=== PATIENT | male | born 1955 | race African-American/Black ===

== ENCOUNTER 2016-03-18 13:31 | Emergency (ER) | payer SELFPAY ==
[~2016-03-18] VITALS: Ht 193 cm; Wt 75.9 kg
[~2016-03-18 13:31] MED LIST: IBUP800T23 PO
[2016-03-18 13:33] VITALS: BP 138/76; PULSE 97; RESP 14; TEMP 98.4; O2SAT 96
--- NOTE | 2016-03-18 14:05 | PD ---
HPI . left arm pain and left leg pain x 4 weeks Chief Complaint: Injury Time Seen by Provider: 14:04 Travel History International Travel<30 days: No Contact w/Intl Traveler<30days: No Traveled to known affect area: No History of Present Illness HPI 60-year-old male with no significant past medical history other than tobacco abuse and alcohol abuse presents to the emergency room complaints of left shoulder and arm pain greater than 4 weeks, as well as left lower extremity pain. Patient states he has had some upper extremity pain for several weeks and has difficulty using his arm. He reports trouble putting on his shirt or lifting any objects. He does lift heavy objects at work and tells me that he needs to be able to work and needs this issue rectified immediately. In regards to his leg pain, it is more chronic in nature and has been long- standing. He denies any recent injury or trauma. He is able to walk without any difficulty or assistance. He is accompanied by his . He denies any chest pain, shortness of breath, abdominal pain, back pain, bowel or bladder dysfunction or saddle anesthesia. He denies any numbness, tingling, slurred speech, or gait difficulties. History Social History Alcohol Use: Yes (1/2 [employer]) Tobacco Use: Yes (1 PACK PER WEEK) Allergies-Medications (Allergen,Severity, Reaction): Coded Allergies: No Known Allergies (Verified , 03/18/16) Reported Meds & Prescriptions Reported Meds & Active Scripts Active Review of Systems General / Constitutional: No: Fever Eyes: No: Visual changes HENT: No: Headaches Cardiovascular: No: Chest Pain or Discomfort Respiratory: No: Shortness of Breath Gastrointestinal: No: Abdominal Pain Genitourinary: No: Dysuria Musculoskeletal: Positive: Pain (left shoulder and left leg pain) Skin: No Rash Neurologic: No: Weakness Psychiatric: No: Depression Endocrine: No: Polydipsia Hematologic/Lymphatic: No: Easy Bruising Physical Exam Narrative GENERAL: AAO x 3, no acute distres. Comfortable on exam table. Thin appearing. SKIN: Warm and dry. No visible rashes or bruising. HEAD: Normocephalic and atraumatic. EYES: No scleral icterus. No injection or drainage. EOM intact, PERRLA ENT: No nasal drainage noted. Mucous membranes pink. Airway patent. NECK: Supple, trachea midline. No JVD. CARDIOVASCULAR: Regular rate and rhythm without murmurs, gallops, or rubs. RESPIRATORY: Breath sounds equal bilaterally. No accessory muscle use. No rhonchi or rales. GASTROINTESTINAL: Abdomen soft, non-tender, nondistended. EXTREMITIES: No cyanosis or edema. Difficulty with active ROM of right shoulder , Passive ROM with some pain. He has positive empty can test. BACK: Nontender without obvious deformity. No CVA tenderness. NEURO: [employer] strength slightly diminished on left hand. Leg strength is normal b/ l. PSYCH: AAO x 3, normal affect. Data Data Last Documented VS Vital Signs Date Time Temp Pulse Resp B/P Pulse Ox O2 Delivery O2 Flow Rate FiO2 03/18/16 13:33 98.4 97 14 138/76 96 Room Air MDM Medical Screen Exam Complete: Yes Emergency Medical Condition: No Differential Diagnosis supraspinatus nerve impingement, rotator cuff injury, shoulder OA OA, muscle spasm Narrative Course 60-year-old male with no significant past medical history other than tobacco abuse and alcohol abuse presents to the emergency room complaints of left shoulder and arm pain greater than 4 weeks, as well as left lower extremity pain. Patient states he has had some upper extremity pain for several weeks and has difficulty using his arm. He reports trouble putting on his shirt or lifting any objects. He does lift heavy objects at work and tells me that he needs to be able to work and needs this issue rectified immediately. In regards to his leg pain, it is more chronic in nature and has been long- standing. He denies any recent injury or trauma. He is able to walk without any difficulty or assistance. He is accompanied by his . He denies any chest pain, shortness of breath, abdominal pain, back pain, bowel or bladder dysfunction or saddle anesthesia. He denies any numbness, tingling, slurred speech, or gait difficulties. A medical screening exam was performed: At the time of evaluation the presenting medical condition was determined not to be of an emergent nature. The patient was given the option of receiving additional care, but declined. Patient was given options for additional community resources from which to obtain care. The Patient Has Been advised to seek medical attention for their presenting complaint. The patient has been advised to return to the ER at any time if an emergent condition develops. I advised patient that he will need to establish with a primary care provider to help navigate his care as he will need ortho follow up to get his shoulder issues fixed. Plan I advised patient that he will need to establish with a primary care provider to help navigate his care as he will need ortho follow up to get his shoulder issues fixed. Primary Impression: Encounter for medical screening examination Condition: Stable Jacinta Tovar Mar 18, 2016 14:05
== END 2016-03-18 14:39 | disposition left against medical advice (07) ==
LOC: NEPB 13:31
DX: M25.512 Pain in left shoulder (principal); F17.210 Nicotine dependence, cigarettes, uncomplicated
CPT/HCPCS: 99281

== ENCOUNTER 2018-01-15 13:53 | Inpatient (IN) ==
--- NOTE | 2018-01-15 15:20 | ED ---
HPI General Chief complaint: Chest Pain Stated complaint: right numbness complaint Time Seen by Provider: 01/15/18 14:39 History of Present Illness HPI narrative: Patient is a 62-year-old male presents emergency department chiefly with right upper quadrant/right flank pain fairly constant for the past 2 weeks. Patient states it radiates up into his right chest wall and a little bit into his shoulder as well. He states no nausea but he has vomited several times. He also states he has been having significant runny diarrhea as well and has lost 9 pounds in the past 2 weeks. He is a cigarette smoker. No cough no congestion no fevers no blood in the stool no blood in the emesis. Symptoms moderate, location radiation and contacts as above per Related Data Home Medications Medication Instructions Recorded Confirmed chlordiazepoxide HCl 25 mg PO TID 01/15/18 01/15/18 omeprazole 20 mg PO DAILY 01/15/18 01/15/18 Allergies Allergy/AdvReac Type Severity Reaction Status Date / Time No Known Allergies Allergy Uncoded 03/18/16 13:44 Review of Systems ROS: all other systems reviewed are negative [facility] Medical History Medical History ETOH abuse (Acute) Social History Social History Substance History: No History of Abuse Smoking Status: Former smoker Tobacco Type: Cigarettes How Often Do You Have a Drink Containing Alcohol: 2 to 3 times a week Recent Travel in [facility] within the Last 8 Weeks: No Recent Out of Country Travel within the Last 8 Weeks: No Exam Narrative Exam Narrative: GENERAL: Well-developed well-nourished but thin and in no obvious distress SKIN: Focused skin assessment warm/dry. HEAD: Atraumatic. Normocephalic. EYES: Pupils equal and round. No scleral icterus. No injection or drainage. ENT: No nasal bleeding or discharge. Mucous membranes pink and moist. NECK: Trachea midline. No JVD. CARDIOVASCULAR: Regular rate and rhythm. No murmur appreciated. RESPIRATORY: No accessory muscle use. Clear to auscultation. Breath sounds equal bilaterally. GASTROINTESTINAL: Abdomen soft, minimally tender in the right upper quadrant without rebound percussive tenderness or guarding. nondistended. Hepatic and splenic margins not palpable. MUSCULOSKELETAL: No obvious deformities. No clubbing. No cyanosis. No edema. NEUROLOGICAL: Awake and alert. No obvious cranial nerve deficits. Motor grossly within normal limits. Normal speech. PSYCHIATRIC: Appropriate mood and affect; insight and judgment normal. Course Initial Documented Vital Signs Temperature 97.6 F 01/15/18 14:01 Pulse Rate 84 01/15/18 14:01 Respiratory Rate 16 01/15/18 14:01 Blood Pressure 132/63 01/15/18 14:01 Pulse Oximetry 97 01/15/18 14:01 Last Documented Vital Signs Temperature 98.0 F 01/15/18 15:11 Pulse Rate 50 L 01/15/18 18:51 Respiratory Rate 18 01/15/18 18:51 Blood Pressure 132/75 01/15/18 18:51 Pulse Oximetry 100 01/15/18 18:51 Medical Decision Making MDM Narrative Medical decision making narrative: patient roomed in the ER. Labs are reassuring. UA still pending at the time of admission. patient CT scan shows obstruction of the right renal pelvis. No obvious source seen. Patient is cigarrette smoker and has a reported history of weight loss and malignancy considered. D/W the patient recommended for admission for renal decompression and urology consult. He is agreeable. Only with minimal pain now but he is hungry. d/w dr canada Medical Screen Exam Complete: Yes Emergency Medical Condition: Yes Lab Data Result diagrams: 01/15/18 15:25 01/15/18 15:25 Lab Results 01/15/18 01/15/18 Range/Units 15:25 15:25 WBC 5.4 (4.0-11.0) th/mm3 RBC 3.71 L (4.50-5.90) mil/mm3 Hgb 12.6 L (13.0-17.0) gm/dL Hct 36.2 L (39.0-51.0) % MCV 97.7 (80.0-100.0) fL MCH 34.1 H (27.0-34.0) pg MCHC 34.9 (32.0-36.0) % RDW 14.5 (11.6-17.2) % Plt Count 212 (150-450) th/mm3 MPV 8.2 (7.0-11.0) fL Neut % (Auto) 64.9 (16.0-70.0) % Lymph % (Auto) 21.6 (9.0-44.0) % Nobles % (Auto) 12.4 H (0.0-8.0) % Eos % (Auto) 0.5 (0.0-4.0) % Baso % (Auto) 0.6 (0.0-2.0) % Neut # (Auto) 3.5 (1.8-7.7) th/mm3 Lymph # (Auto) 1.2 (1.0-4.8) th/mm3 Nobles # (Auto) 0.7 (0.0-0.9) th/mm3 Eos # (Auto) 0.0 (0.0-0.4) th/mm3 Baso # (Auto) 0.0 (0.0-0.2) th/mm3 WBC Differential . Differential Comment Auto diff final Sodium 139 (136-145) meq/L Potassium 4.0 (3.5-5.1) meq/L Chloride 106 (98-107) meq/L Carbon Dioxide 28.4 (21.0-32.0) meq/L Anion Gap 5 (5-15) meq/L BUN 11 (7-18) mg/dL Creatinine 0.98 (0.60-1.30) mg/dL Estimated GFR Greater than 89 (>89) mL/min Random Glucose 107 H (74-106) mg/dL Calcium 8.9 (8.5-10.1) mg/dL Total Bilirubin 0.4 (0.2-1.0) mg/dL AST 32 (15-37) U/L ALT 21 (12-78) U/L Alkaline Phosphatase 49 (45-117) U/L Total Protein 7.3 (6.4-8.2) g/dL Albumin 3.5 (3.4-5.0) g/dL Lipase 224 (73-393) U/L Imaging Data Radiologist's impression: Chest X-Ray 01/15/18 15:12 CONCLUSION: No acute abnormality is seen. Abdomen/Pelvis CT 01/15/18 16:05 CONCLUSION: 1. Severe dilatation of the right collecting system and right renal pelvis with abrupt transition at the UPJ level. This is likely from a UPJ obstruction. There does appear to be normal symmetric enhancement of the kidneys and excretion of the contrast into the collecting system. 2. Calcified pleural plaque at the anterior lateral right mid chest. Discharge Plan Discharge Disposition Patient Disposition: ED Admit(ED Internal Use Only) Discharge Condition Condition: Stable Discharge Order Discharge Orders: ED Use Only Admit Order (Routine); Ordered 01/15/18 Ordered By: Jarett Nelson Physicians Team ED Provider: Jarett Nelson Primary Care Provider: UNKNOWN, Attending Provider: Hector Canada Other Providers: Jose Land Discharge Interventions Interventions: Vital Signs Last Done: 01/15/18 14:05 Status ED Status: Admitted Patient
--- NOTE | 2018-01-15 15:33 | XR ---
EXAM DATE: 01/15/2018 3:28 PM EST AGE/SEX: 62 years / Male INDICATIONS: . Chest pain. CLINICAL DATA: This is the patient's initial encounter. Patient reports that signs and symptoms have been present for 3 weeks and indicates a pain score of 6/10. MEDICAL/SURGICAL HISTORY: None. None. [place] [facility] [place]. . FINDINGS: The heart size is normal. The lungs are grossly clear. No effusion is seen. There is calcification in the right mid lung thought related to pleural calcification. This was present previously. CONCLUSION: No acute abnormality is seen. Electronically signed by: Tylor Alfonso MD 01/15/2018 3:31 PM EST
[2018-01-15] MEDS ORDERED: Ketorolac Inj 30 MG/ML (IVP) Vial IV.PUSH ONE (15:51)
[2018-01-15 15:57] LABS: Baso % (Auto) 0.6 % (0.0-2.0); Eos % (Auto) 0.5 % (0.0-4.0); Hematocrit 36.2 % (39.0-51.0); Hemoglobin 12.6 gm/dL (13.0-17.0); Lymph # (Auto) 1.2 th/mm3 (1.0-4.8); Lymph % (Auto) 21.6 % (9.0-44.0); Mean Corpuscular HGB Conc 34.9 % (32.0-36.0); Mean Corpuscular Hemoglobin 34.1 pg (27.0-34.0); Mean Corpuscular Volume 97.7 fL (80.0-100.0); Mean Platelet Volume 8.2 fL (7.0-11.0); Mono # (Auto) 0.7 th/mm3 (0.0-0.9); Mono % (Auto) 12.4 % (0.0-8.0); Neut # (Auto) 3.5 th/mm3 (1.8-7.7); Neut % (Auto) 64.9 % (16.0-70.0); Platelet Count 212 th/mm3 (150-450); Red Blood Count 3.71 mil/mm3 (4.50-5.90); Red Cell Distribution Width 14.5 % (11.6-17.2); White Blood Count 5.4 th/mm3 (4.0-11.0)
[2018-01-15 16:12] LABS: Alanine Aminotransferase 21 U/L (12-78)
[2018-01-15 16:14] LABS: Alkaline Phosphatase 49 U/L (45-117); Total Protein 7.3 g/dL (6.4-8.2)
[2018-01-15 16:24] LABS: Albumin 3.5 g/dL (3.4-5.0); Anion Gap 5 meq/L (5-15); Aspartate Aminotransferase 32 U/L (15-37); Blood Urea Nitrogen 11 mg/dL (7-18); Calcium 8.9 mg/dL (8.5-10.1); Carbon Dioxide 28.4 meq/L (21.0-32.0); Chloride 106 meq/L (98-107); Glomerular Filtration Rate Greater Than 89 mL/min (>89); Glucose,Random 107 mg/dL (74-106); Lipase 224 U/L (73-393); Sodium 139 meq/L (136-145)
--- NOTE | 2018-01-15 18:40 | CT ---
EXAM DATE: 01/15/2018 6:30 PM EST AGE/SEX: 62 years / Male INDICATIONS: Right upper abdomen pain for three weeks. CLINICAL DATA: This is the patient's initial encounter. Patient reports that signs and symptoms have been present for 3 weeks and indicates a pain score of 7/10. MEDICAL/SURGICAL HISTORY: None. None. ORAL CONTRAST: No oral contrast ingested. RADIATION DOSE: 4.84 CTDI (mGy) COMPARISON: No prior exams available for comparison. TECHNIQUE: Multiple contiguous axial images were obtained through the abdomen and pelvis following b olus infusion of 86 ml Omnipaque 350 (iohexol) nonionic water-soluble contrast as a single exam dos e. No oral contrast ingested. Using automated exposure control and adjustment of the mA and/or kV ac cording to patient size, radiation dose was kept as low as reasonably achievable to obtain optimal di agnostic quality images. DICOM format image data is available electronically for review and comparis on. FINDINGS: Lower Lungs: The visualized lower lungs are clear. Calcified pleural plaque is seen along the anterio r lateral right mid chest. Liver: The liver has a homogeneous density without space-occupying lesion. There is no dilation of th e biliary tree. Spleen: Homogeneous density without enlargement. Pancreas: Unremarkable without mass or calcification. Kidneys: There is severe dilatation of the right renal collecting system and right renal pelvis. The right ureters not dilated. No stones are seen. The renal cortex appears to enhance symmetrically whe n compared to the contralateral side. There is excretion of contrast into the collecting systems bila terally. The left kidney appears normal. Adrenal Glands: Unremarkable. Aorta: The aorta and proximal iliac vessels are grossly unremarkable without aneurysmal dilation. Bowel/Mesentery: The bowel loops are grossly unremarkable. The cecum and sigmoid colon have a normal configuration. Abdominal Wall: Intact. Retroperitoneum: No evidence of adenopathy in the retrocrural, para-aortic, or deep pelvic regions. Bladder: Contours are smooth. Reproductive Organs: No abnormal masses or calcifications seen. Inguinal: The inguinal region is unremarkable without evidence of adenopathy. Bony Structures: Unremarkable. CONCLUSION: 1. Severe dilatation of the right collecting system and right renal pelvis with abrupt transition at the UPJ level. This is likely from a UPJ obstruction. There does appear to be normal symmetric enhan cement of the kidneys and excretion of the contrast into the collecting system. 2. Calcified pleural plaque at the anterior lateral right mid chest. Electronically signed by: Tylor Alfonso MD 01/15/2018 6:39 PM EST
[2018-01-15] MEDS ORDERED: Acetaminophen 325 MG Tablet PO PRN (19:39)
[2018-01-15] MEDS ORDERED: Bisacodyl 10 MG Supp RECTAL PRN (19:39)
[2018-01-15] MEDS ORDERED: LORazepam 1 MG Tablet PO PRN (19:47)
[2018-01-15] MEDS ORDERED: Haloperidol Inj 5 MG/ML Ampul IV.PUSH PRN (19:47)
[2018-01-15] MEDS: Sod Chloride 0.9% Inj 1,000 ML IV.CONT SCH (20:13)
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
[2018-01-16 05:06] LABS: Baso % (Auto) 0.7 % (0.0-2.0); Eos % (Auto) 1.2 % (0.0-4.0); Hematocrit 36.1 % (39.0-51.0); Hemoglobin 12.2 gm/dL (13.0-17.0); Lymph # (Auto) 1.3 th/mm3 (1.0-4.8); Lymph % (Auto) 33.8 % (9.0-44.0); Mean Corpuscular HGB Conc 33.9 % (32.0-36.0); Mean Corpuscular Hemoglobin 32.5 pg (27.0-34.0); Mean Corpuscular Volume 95.9 fL (80.0-100.0); Mean Platelet Volume 7.8 fL (7.0-11.0); Mono # (Auto) 0.5 th/mm3 (0.0-0.9); Mono % (Auto) 13.6 % (0.0-8.0); Neut % (Auto) 50.7 % (16.0-70.0); Platelet Count 205 th/mm3 (150-450); Red Blood Count 3.76 mil/mm3 (4.50-5.90); Red Cell Distribution Width 14.4 % (11.6-17.2); White Blood Count 3.9 th/mm3 (4.0-11.0)
[2018-01-16 05:18] LABS: INR 1.1 Ratio; Prothrombin Time 10.9 sec (9.8-11.6)
[2018-01-16 05:28] LABS: Albumin 3.1 g/dL (3.4-5.0); Anion Gap 7 meq/L (5-15); Aspartate Aminotransferase 25 U/L (15-37); Blood Urea Nitrogen 9 mg/dL (7-18); Calcium 8.3 mg/dL (8.5-10.1); Carbon Dioxide 26.6 meq/L (21.0-32.0); Chloride 106 meq/L (98-107); Glomerular Filtration Rate Greater Than 89 mL/min (>89); Glucose,Random 86 mg/dL (74-106); Potassium 3.6 meq/L (3.5-5.1); Sodium 140 meq/L (136-145)
[2018-01-16 05:29] LABS: Alanine Aminotransferase 18 U/L (12-78)
[2018-01-16 05:31] LABS: Alkaline Phosphatase 38 U/L (45-117); Total Protein 6.6 g/dL (6.4-8.2)
[2018-01-16] MEDS: Sod Chloride 0.9% Inj 1,000 ML IV.CONT SCH ×2 (05:31→14:49)
[2018-01-16 06:02] LABS: Bilirubin,Urine Negative (Negative); Clarity,Urine Clear (Clear); Color,Urine Yellow (Yellw/Straw); Glucose,Urine (UA) Negative (Negative); Leukocyte Esterase,Urine Negative (Negative); Mucus,Urine Many /lpf (Occasional); Nitrite,Urine Negative (Negative); Specific Gravity,Urine 1.058 (1.002-1.035); Squamous Epithelial Cell,Urine <1 /hpf (0-5)
[2018-01-16 06:03] LABS: Urobilinogen,Urine 0.2 mg/dL (Less than 2)
[2018-01-16] MEDS: Pantoprazole Sodium 20 MG DR Tablet PO SCH (08:05)
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
--- NOTE | 2018-01-16 09:09 | P.PN ---
Subjective Interval history: Follow up for urinary obstruction, hydronephrosis, flank pain. Patient reports continued diffuse right flank pain, unchanged compared to yesterday. Denies fevers or chills. He states he does have problems initiating urination, but denies dysuria. Denies any other medical complaints. Physical Exam Vital signs: Vital Signs 01/15/18 14:01 01/15/18 14:05 01/15/18 15:11 Temperature 97.6 F 98.0 F Pulse Rate 84 68 87 Respiratory Rate 16 18 18 Blood Pressure 132/63 124/78 137/62 Pulse Oximetry 97 98 98 01/15/18 18:51 01/15/18 20:50 01/15/18 21:10 Temperature 96.2 F L Pulse Rate 50 L 49 L 59 L Respiratory Rate 18 16 16 Blood Pressure 132/75 130/73 Pulse Oximetry 100 96 92 L 01/16/18 00:00 01/16/18 04:00 01/16/18 07:00 Temperature 97.1 F L 97 F L Pulse Rate 69 58 L Respiratory Rate 17 16 12 Blood Pressure 124/72 117/64 Pulse Oximetry 99 98 01/16/18 08:08 Temperature 98.7 F Pulse Rate 66 Respiratory Rate 16 Blood Pressure 112/65 Pulse Oximetry 97 Intake & Output 01/15/18 01/16/18 01/16/18 18:59 06:59 18:59 Intake Total 1000 / 1000 0 / 0 Output Total 300 / 300 Balance 700 / 700 0 / 0 Weight 73.028 kg 73.02 kg Intake: IV 1000 / 1000 NS Inj 1,000 ML @ 100 mls/hr IV 1000 / 1000 .CONT .Q10H [facility] Rx#:[id number] Oral 0 / 0 Output: Urine 300 / 300 Other: # Voids 1 Date of Last Bowel Movement 01/12/18 01/13/18 Weight On Admission 73.02 kg Narrative: GENERAL: Well-nourished, well-developed male patient in [place]. SKIN: Warm and dry. No rash. HEENT: Normocephalic. Atraumatic. Pupils equal and round. Mucous membranes pink and moist. CARDIOVASCULAR: Regular rate and rhythm. No murmur appreciated. RESPIRATORY: No accessory muscle use. Clear to auscultation. Breath sounds equal bilaterally. GASTROINTESTINAL: Abdomen soft, non-tender, nondistended. Normoactive bowel sounds x4. MUSCULOSKELETAL: No obvious deformities. Extremities without clubbing, cyanosis , or edema. Mild right CVA tenderness. NEUROLOGICAL: Awake and alert. No obvious cranial nerve deficits. Moving all extremities spontaneously. Normal speech. PSYCHIATRIC: Appropriate mood and affect; insight and judgment normal. Results - Labs CBC & Chem 7: 01/16/18 04:32 01/16/18 04:32 Laboratory Results - last 24 hr 01/15/18 01/15/18 01/16/18 15:25 15:25 04:32 WBC 5.4 3.9 L RBC 3.71 L 3.76 L Hgb 12.6 L 12.2 L Hct 36.2 L 36.1 L MCV 97.7 95.9 MCH 34.1 H 32.5 MCHC 34.9 33.9 RDW 14.5 14.4 Plt Count 212 205 MPV 8.2 7.8 Neut % (Auto) 64.9 50.7 Lymph % (Auto) 21.6 33.8 [place] % (Auto) 12.4 H 13.6 H Eos % (Auto) 0.5 1.2 Baso % (Auto) 0.6 0.7 Neut # (Auto) 3.5 2.0 Lymph # (Auto) 1.2 1.3 [place] # (Auto) 0.7 0.5 Eos # (Auto) 0.0 0.0 Baso # (Auto) 0.0 0.0 WBC Differential . . Differential Comment Auto diff final Auto diff final PT INR Sodium 139 Potassium 4.0 Chloride 106 Carbon Dioxide 28.4 Anion Gap 5 BUN 11 Creatinine 0.98 Estimated GFR Greater than 89 Random Glucose 107 H Calcium 8.9 Total Bilirubin 0.4 AST 32 ALT 21 Alkaline Phosphatase 49 Total Protein 7.3 Albumin 3.5 Lipase 224 Urine Color Urine Clarity Urine pH Ur Specific [place] Urine Protein Urine Glucose (UA) Urine Ketones Urine Occult Blood Urine Nitrate Urine Bilirubin Urine Urobilinogen Ur Leukocyte Esterase Urine RBC Urine WBC Ur Squamous Epith Cells Urine Mucus Micro UA Comment Ur Microscopic Review Urine Culture Comments 01/16/18 01/16/18 01/16/18 04:32 04:32 05:40 WBC RBC Hgb Hct MCV MCH MCHC RDW Plt Count MPV Neut % (Auto) Lymph % (Auto) [place] % (Auto) Eos % (Auto) Baso % (Auto) Neut # (Auto) Lymph # (Auto) [place] # (Auto) Eos # (Auto) Baso # (Auto) WBC Differential Differential Comment PT 10.9 INR 1.1 Sodium 140 Potassium 3.6 Chloride 106 Carbon Dioxide 26.6 Anion Gap 7 BUN 9 Creatinine 0.76 Estimated GFR Greater than 89 Random Glucose 86 Calcium 8.3 L Total Bilirubin 0.4 AST 25 ALT 18 Alkaline Phosphatase 38 L Total Protein 6.6 D Albumin 3.1 L Lipase Urine Color Yellow Urine Clarity Clear Urine pH 5.0 Ur Specific [place] 1.058 H Urine Protein Negative Urine Glucose (UA) Negative Urine Ketones Negative Urine Occult Blood Negative Urine Nitrate Negative Urine Bilirubin Negative Urine Urobilinogen 0.2 Ur Leukocyte Esterase Negative Urine RBC 1 Urine WBC Less than 1 Ur Squamous Epith Cells <1 Urine Mucus Many H Micro UA Comment Culture not ind Ur Microscopic Review Not Reportable Urine Culture Comments Culture not ind - Imaging Impressions Chest X-Ray 01/15/18 15:12 CONCLUSION: No acute abnormality is seen. Abdomen/Pelvis CT 01/15/18 16:05 CONCLUSION: 1. Severe dilatation of the right collecting system and right renal pelvis with abrupt transition at the UPJ level. This is likely from a UPJ obstruction. There does appear to be normal symmetric enhancement of the kidneys and excretion of the contrast into the collecting system. 2. Calcified pleural plaque at the anterior lateral right mid chest. Assessment and Plan - Plan 62-year-old male with history of GERD and alcohol abuse presents with a 2-week history of worsening right flank pain Urinary obstruction/hydronephrosis with intractable right flank pain: Acute -CT abdomen/pelvis reviewed, shows severe dilatation of the right collecting system and right renal pelvis with abrupt transition at the UPJ level. This is likely from a UPJ obstruction. There does appear to be normal symmetric enhancement of the kidneys and excretion of the contrast into the collecting system. -UA reviewed and unremarkable -Continue on IV fluids -Monitor I's and O's -Consult urology, renogram ordered for today Alcohol abuse/withdrawal: Patient with tremors, history of possible alcohol withdrawal seizures in the past -Continue on thiamine/folate/multivitamin -CIWA protocol GERD: Chronic -Continue Protonix DVT prophylaxis: Teds/SCDs; avoid chemical prophylaxis in case surgical intervention is indicated
--- NOTE | 2018-01-16 12:04 | NM ---
EXAM DATE: 01/16/2018 11:34 AM EST AGE/SEX: 62 years / Male INDICATIONS: Right flank pain. CLINICAL DATA: This is the patient's initial encounter. Patient reports that signs and symptoms have been present for 1 day and indicates a pain score of 3/10. MEDICAL/SURGICAL HISTORY: Gastroesophageal reflux disease. . Intestinal surgery. COMPARISON: [facility] [place]EL[place] W CONTRAST, 01/15/2018. . TECHNIQUE: Following the intravenous administration of radiotracer, dynamic imaging of flow and excre tory phases was performed. DOSE: 20 mCi Tc99m DTPA IV MEDICATION: 40 mg Lasix IV at 13 minutes. minutes. FINDINGS: Flow: There is symmetric arrival of bolus to both kidneys there is delayed excretion on the right wh en compared to the left. Differential function is 36% on the left and 64% on the right. There is no r esponse to Lasix. CONCLUSION: 1. Delayed excretion bilaterally significantly worse on the right than the left with no response to Lasix. Electronically signed by: Mark Woods MD 01/16/2018 12:02 PM EST
--- NOTE | 2018-01-16 15:16 | US ---
EXAM DATE: 01/16/2018 3:12 PM EST AGE/SEX: 62 years / Male INDICATIONS: Flank pain. CLINICAL DATA: This is the patient's initial encounter. Patient reports that signs and symptoms have been present for 1 day and indicates a pain score of 5/10. MEDICAL/SURGICAL HISTORY: Gastroesophageal reflux disease. ETOH abuse. . Intestinal surgery. COMPARISON: [facility] – [place] ABDOMEN & PELVIS W CONTRAST, 01/15/2018. . MEASUREMENTS: Right Kidney:__14.4 x 5.6 x 5.6 cm Left Kidney:__11.3 x 4.7 x 5.5 cm FINDINGS: Right Kidney: Significant right hydronephrosis with prominent pelvis without stone suggesting UPJ obs truction. Left Kidney: Normal echogenicity and cortical thickness. No mass or hydronephrosis. Bladder: Within normal limits given the degree of distension. Other: None. CONCLUSION: 1. Probable right UPJ obstruction. Lasix nuclear medicine renogram would be of benefit Electronically signed by: Mark Woods MD 01/16/2018 3:14 PM EST
--- NOTE | 2018-01-16 18:57 | ECG ---
Date Performed: 01/15/2018 Time Performed: 14:09:45 PTAGE: 62 years EKG: Sinus rhythm POSSIBLE LEFT ATRIAL ENLARGEMENT POSSIBLE LEFT VENTRICULAR HYPERTROPHY ABNORMAL ECG PREVIOUS TRACING : 05/02/2003 04.33 Since the previous tracing, no significant change noted DOCTOR: Alberto Medellin Interpretating Date/Time 01/16/2018 18:55:17
[2018-01-17] MEDS: Sod Chloride 0.9% Inj 1,000 ML IV.CONT SCH (02:18)
[2018-01-17] MEDS ORDERED: Multivitamin/Minerals Therapeutic Tablet PO SCH (09:00)
[2018-01-17] MEDS ORDERED: Folic Acid 1 MG Tablet PO SCH (09:00)
[2018-01-17] MEDS: Pantoprazole Sodium 20 MG DR Tablet PO SCH (09:25)
--- NOTE | 2018-01-17 09:51 | P.PN ---
Subjective Interval history: Follow up for urinary obstruction, hydronephrosis, flank pain. The patient reports feeling much better today. He states his flank pain has resolved. He is urinating without difficulty. Denies any fevers or chills. He is tolerating oral intake. He wants to go home. Discussed following up with urology Dr. Land, patient verbalized understanding. Physical Exam Vital signs: Vital Signs 01/16/18 12:22 01/16/18 15:40 01/16/18 17:06 Temperature Pulse Rate 45 L 85 Respiratory Rate 16 16 12 Blood Pressure 139/63 95/58 L Pulse Oximetry 95 100 01/16/18 19:42 01/16/18 23:58 01/17/18 07:37 Temperature 97.8 F 98.5 F 97.8 F Pulse Rate 57 L 81 63 Respiratory Rate 16 16 20 Blood Pressure 114/59 L 102/63 89/56 L Pulse Oximetry 92 L 100 97 Intake & Output 01/16/18 01/17/18 01/17/18 18:59 06:59 18:59 Intake Total 1240 / 1240 1000 / 1000 Output Total 500 / 500 Balance 1240 / 1240 500 / 500 Intake: IV 1000 / 1000 1000 / 1000 NS Inj 1,000 ML @ 100 mls/hr IV 1000 / 1000 1000 / 1000 .CONT .Q10H [facility] Rx#:[id number] Oral 240 / 240 Output: Urine 500 / 500 Other: Date of Last Bowel Movement 01/13/18 Narrative: GENERAL: Well-nourished, well-developed male patient in [facility]. SKIN: Warm and dry. No rash. HEENT: Normocephalic. Atraumatic. Pupils equal and round. Mucous membranes pink and moist. CARDIOVASCULAR: Regular rate and rhythm. No murmur appreciated. RESPIRATORY: No accessory muscle use. Clear to auscultation. Breath sounds equal bilaterally. GASTROINTESTINAL: Abdomen soft, non-tender, nondistended. Normoactive bowel sounds x4. MUSCULOSKELETAL: No obvious deformities. Extremities without clubbing, cyanosis , or edema. No flank or CVA tenderness bilaterally today. NEUROLOGICAL: Awake and alert. No obvious cranial nerve deficits. Moving all extremities spontaneously. Normal speech. PSYCHIATRIC: Appropriate mood and affect; insight and judgment normal. Results - Labs CBC & Chem 7: 01/16/18 04:32 01/16/18 04:32 - Imaging Impressions Abdomen/Bladder Ultrasound 01/16/18 00:00 CONCLUSION: 1. Probable right UPJ obstruction. Lasix nuclear medicine renogram would be of benefit Renal Scan w/Medication NM 01/16/18 00:00 CONCLUSION: 1. Delayed excretion bilaterally significantly worse on the right than the left with no response to Lasix. Assessment and Plan - Plan 62-year-old male with history of GERD and alcohol abuse presents with a 2-week history of worsening right flank pain Urinary obstruction/hydronephrosis with intractable right flank pain: Acute -CT abdomen/pelvis reviewed, shows severe dilatation of the right collecting system and right renal pelvis with abrupt transition at the UPJ level. This is likely from a UPJ obstruction. There does appear to be normal symmetric enhancement of the kidneys and excretion of the contrast into the collecting system. -UA reviewed and unremarkable -Continue on IV fluids -Monitor I's and O's -Consulted urology, appreciate Dr. Land assistance -Renal U/S showed Probable right UPJ obstruction. Lasix nuclear medicine renogram would be of benefit -renogram showed Delayed excretion bilaterally significantly worse on the right than the left with no response to Lasix. -Patient's pain resolved, urinating without difficulty -Cleared for discharge by Dr. Land, recommended outpatient follow up for cystoscopy in the next 7-10 days, discussed with the patient Alcohol abuse/withdrawal: Patient with tremors, history of possible alcohol withdrawal seizures in the past -Continue on thiamine/folate/multivitamin -CIWA protocol GERD: Chronic -Continue Protonix DVT prophylaxis: Teds/SCDs; avoid chemical prophylaxis in case surgical intervention is indicated Discharge Planning: Discharge patient to home Condition on discharge: Stable Regular Diet as tolerated Ad Karen activity Rx written: none Follow-up with primary care physician and urology Dr. Land
--- NOTE | 2018-01-17 10:55 | P.PNURO ---
Subjective Patient symptoms today: Patient denies right upper quadrant or right flank pain Objective Vital Signs: Vital Signs 01/16/18 12:22 01/16/18 15:40 01/16/18 17:06 Temperature Pulse Rate 45 L 85 Respiratory Rate 16 16 12 Blood Pressure 139/63 95/58 L Pulse Oximetry 95 100 01/16/18 19:42 01/16/18 23:58 01/17/18 07:37 Temperature 97.8 F 98.5 F 97.8 F Pulse Rate 57 L 81 63 Respiratory Rate 16 16 20 Blood Pressure 114/59 L 102/63 89/56 L Pulse Oximetry 92 L 100 97 Intake & Output 01/16/18 01/17/18 01/17/18 18:59 06:59 18:59 Intake Total 1240 / 1240 1000 / 1000 Output Total 500 / 500 Balance 1240 / 1240 500 / 500 Intake: IV 1000 / 1000 1000 / 1000 NS Inj 1,000 ML @ 100 mls/hr IV 1000 / 1000 1000 / 1000 .CONT .Q10H [facility] Rx#:[id number] Oral 240 / 240 Output: Urine 500 / 500 Other: Date of Last Bowel Movement 01/13/18 Result Diagrams: 01/16/18 04:32 01/16/18 04:32 Other Results: Afebrile No CVA tenderness Abdomen soft, nondistended, nontender Imaging: Impressions Abdomen/Bladder Ultrasound 01/16/18 00:00 CONCLUSION: 1. Probable right UPJ obstruction. Lasix nuclear medicine renogram would be of benefit Renal Scan w/Medication NM 01/16/18 00:00 CONCLUSION: 1. Delayed excretion bilaterally significantly worse on the right than the left with no response to Lasix. Reviewed actual renal ultrasound and Lasix renal scan images. It is unclear whether the findings are related to an anatomic ureteropelvic junction obstruction or some other causes such as posttraumatic urinoma formation versus parapelvic cyst causing extrinsic compression to the ureteropelvic junction area. Medications and IVs: Active Medications Generic Name Dose Route Start Last Admin Trade Name Freq PRN Reason Stop Dose Admin Acetaminophen 650 mg 01/15/18 19:39 Tylenol PO Q4H PRN Temp > 100.4 Al Hydroxide/Mg Hydroxide 30 ml 01/15/18 19:39 Milk Of Magnesia Liq PO Q12H PRN Mild Constipation Bisacodyl 10 mg 01/15/18 19:39 Dulcolax Supp RECTAL DAILY PRN SEVERE CONSITIPATION Flumazenil 0.2 mg 01/15/18 19:47 Romazecon Inj IV.PUSH Q1M PRN OVERSEDATION Folic Acid 1 mg 01/17/18 09:00 01/17/18 09:25 Folic Acid PO 01/22/18 08:59 1 mg DAILY MACKENZIE Administration Haloperidol Lactate 1 mg 01/15/18 19:47 Haldol Inj IV.PUSH Q15M PRN for severe agitation Sodium Chloride 1,000 mls @ 100 mls/hr 01/15/18 19:45 01/17/18 02:18 Ns Inj IV.CONT 100 mls/hr .Q10H MACKENZIE Administration Lactulose 30 ml 01/15/18 19:39 Lactulose Liq PO DAILY PRN SEVERE CONSITIPATION Lorazepam 1 mg 01/15/18 19:47 Ativan PO Q4H PRN for CIWA 8-10 Lorazepam 2 mg 01/15/18 19:47 Ativan PO Q2H PRN for CIWA 11-14 Lorazepam 2 mg 01/15/18 19:47 Ativan Inj IV.PUSH Q2H PRN for CIWA 11-14 Lorazepam 2 mg 01/15/18 19:47 Ativan Inj IV.PUSH Q1H PRN for CIWA 15-20 Lorazepam 2 mg 01/15/18 19:47 Ativan Inj IV.PUSH Q15M PRN for CIWA > 20 Lorazepam 1 mg 01/15/18 19:47 Ativan Inj IV.PUSH Q4H PRN for CIWA 8-10 Multivitamins/Minerals 1 tab 01/17/18 09:00 01/17/18 09:25 Theragran-M PO 01/22/18 08:59 1 tab DAILY MACKENZIE Administration Ondansetron HCl 4 mg 01/15/18 19:39 Zofran Inj IV.PUSH Q6H PRN NAUSEA OR VOMITING Pantoprazole Sodium 20 mg 01/16/18 09:00 01/17/18 09:25 Protonix PO 20 mg DAILY MACKENZIE Administration Sennosides 17.2 mg 01/15/18 19:39 Senokot PO Q12H PRN Moderate Constipation Sodium Chloride 2 ml 01/15/18 21:00 01/17/18 09:25 Ns Flush IV.FLUSH Not Given BID MACKENZIE Sodium Chloride 2 ml 01/15/18 19:39 Ns Flush IV.FLUSH PRN PRN FLUSH AFTER USING IV ACCESS Thiamine HCl 100 mg 01/17/18 09:00 01/17/18 09:25 Vitamin B1 PO 100 mg DAILY MACKENZIE Administration Assessment and Plan - Assessment (1) RUQ abdominal pain Code(s): R10.11 - Right upper quadrant pain Status: Acute - Plan Urologic impression: 1. Right ureteropelvic junction obstruction which may represent urinoma formation versus parapelvic renal cyst causing extrinsic compression. 2. Recent history of right mid/chest trauma which may be a contributing factor to the abnormal imaging studies. 3. clinically stable at the present time Recommendations: 1. May discharge home from a perspective. 2. We will have my office make arrangements for ongoing outpatient urologic workup to include cystoscopy with a right retrograde pyelogram within the next 7 -10 days.
== END 2018-01-17 13:19 | disposition home or self-care (01) ==
LOC: NEPC 13:53 → NEDA 19:22 → OBSVTOIN 19:22 → INTOOBSV 19:22 → NEPHCDU 20:59
PROVIDERS: ADMIT Internal Medicine; ATTEND Internal Medicine